=== PATIENT | female | born 1975 | race Caucasian/White ===

== ENCOUNTER 2018-07-30 09:47 | Emergency (ER) | payer OTHER ==
[~2018-07-30] VITALS: Ht 170.2 cm; Wt 83.2 kg
[2018-07-30 09:50] VITALS: TEMP 98.4
[2018-07-30 10:08] LABS: COLLECTION METHOD CLEAN CATCH
[2018-07-30 10:35] LABS: MUCOUS Present /lpf; PH 7 (5-8); SQUAMOUS EPITHELIAL None Seen /hpf; URINE APPEARANCE Clear; URINE BACTERIA None Seen /hpf; URINE BILIRUBIN Negative (NEGATIVE); URINE BLOOD Negative (NEGATIVE); URINE COLOR Yellow; URINE GLUCOSE Negative (NEGATIVE); URINE KETONE Trace (NEGATIVE); URINE LEUKOCYTE ESTERASE Negative (NEGATIVE); URINE NITRATE Negative (NEGATIVE); URINE PROTEIN(semi-quant) Negative (NEGATIVE); URINE RBC 0-2 /hpf; URINE UROBILINOGEN Negative (NEGATIVE)
[2018-07-30 10:42] LABS: BASO # 0.1 (0.0-0.2); BASO % 0.9 % (0.0-2.0); EOS # 0.2 (0.0-0.7); EOS % 1.7 % (0-4.0); GRAN # 7.3 (1.4-6.5); GRAN % 74.5 % (42.2-75.2); HEMATOCRIT 42.5 % (37.0-47.0); HEMOGLOBIN 13.8 g/dl (12.5-16.0); LYMPH # 1.8 (1.2-3.4); LYMPH % 17.9 % (20.0-51.0); MEAN CELL VOLUME 91 fl (80.0-100.0); MEAN CORPUSCULAR HEMOGLOBIN 30 pg (27.0-31.0); MEAN CORPUSCULAR HGB CONC 33 g/dl (33.0-37.0); MEAN PLATELET VOLUME 10.9 fl (7.4-10.4); MONO # 0.5 (0.1-0.6); MONO % 4.7 % (1.7-9.3); PLATELET COUNT 291 K/mm3 (130-400); RED BLOOD COUNT 4.68 M/mm3 (4.10-5.30); REDCELL DISTRIBUTION WIDTH-CV 13.6 % (11.5-14.5)
[2018-07-30] MEDS ORDERED: ZYRTEC5 MG PO (10:49)
[2018-07-30] MEDS ORDERED: MASON NATURAL2000 IU (10:50)
[2018-07-30] MEDS ORDERED: FLONASE NASAL S16 GM NS (10:50)
[2018-07-30] MEDS ORDERED: SYNTHROID0.112 MG/T PO (10:51)
[2018-07-30 10:54] LABS: ALANINE AMINOTRANSFERASE 16 U/L (9-52); ALBUMIN 4.6 gm/dL (3.5-5.0); ALKALINE PHOSPHATASE 82 U/L (50-136); ANION GAP 11 mmol/L (7-16); AST,SGOT 18 U/L (15-37); BILIRUBIN,TOTAL 0.6 mg/dL (0.0-1.0); BLOOD UREA NITROGEN 9 mg/dL (7-17); CALCIUM 9.8 mg/dL (8.4-10.2); CARBON DIOXIDE 23 mmol/L (22-30); CHLORIDE 106 mmol/L (98-107); CREATININE, serum 0.74 mg/dL (0.52-1.25); GLUCOSE 92 mg/dL (74-106); SODIUM 140 mmol/L (137-145); TOTAL PROTEIN 8.5 gm/dL (6.4-8.2)
[2018-07-30 10:57] LABS: C-REACTIVE PROTEIN < 0.5 mg/dL (0.0-0.9)
[2018-07-30] MEDS ORDERED: PRILOSEC 20MG20 MG PO (11:47)
[2018-07-30] MEDS ORDERED: COMPAZINE 110 MG/TAB PO (11:47)
[2018-07-30 12:23] VITALS: BP 122/81; PULSE 79
== END 2018-07-30 12:12 | disposition home or self-care (01) ==
LOC: COL.ER 09:47
PROVIDERS: Physician Assistant
DX: R10.12 Left upper quadrant pain (principal); E03.9 Hypothyroidism, unspecified; R11.0 Nausea; Z79.51 Long term (current) use of inhaled steroids
CPT/HCPCS: J0780; J7030